=== PATIENT | female | born 1945 | race Hispanic/Latino ===

== ENCOUNTER 2016-08-09 00:12 | Emergency (ER) | payer MEDICARE, BC ==
[2016-08-09 00:20] VITALS: BP 147/72; PULSE 70; RESP 20; TEMP 97.5; O2SAT 100
[2016-08-09] MEDS ORDERED: Bacitracin 500 Units/gm Oint Foilpak UD ONE (00:57)
--- NOTE | 2016-08-09 00:59 | C.PDOC ---
History Of Present Illness 71 year old female presents to the ED with complaints of scratches to both forearms. Patient states her cat escaped and while trying to get the cat back, it scratched her. Cat is being treated for bartonella and upon calling the vet was advised to go to the ER to be treated. Patient denies any other physical complaints at this time. Time Seen by Provider: 08/09/16 00:28 Chief Complaint (Nursing): Abnormal Skin Integrity History Per: Patient History/Exam Limitations: no limitations Onset/Duration Of Symptoms: Hrs Current Symptoms Are (Timing): Still Present Location Of Injury: Right: Forearm, Left: Forearm, Anterior: Forearm Quality Of Symptoms: denies: Itching, Swollen, Draining Recent travel outside of the [place]: No - Animal Bite Description Of The Attack: Approached Animal (to recapture escaped cat ) Description Of The Animal: Family Pet Reports Animal Appears: Other (Being treated for Bartonella) Animal Control Notified: No Past Medical History Reviewed: Historical Data, Nursing Documentation, Vital Signs Vital Signs: Last Vital Signs Temp 97.5 F L 08/09/16 00:15 Pulse 70 08/09/16 00:15 Resp 20 08/09/16 01:15 BP 147/72 08/09/16 00:15 Pulse Ox 100 08/09/16 05:56 Surgical History: Cholecystectomy - [facility] Procedures COLONOSCOPY (05/19/02) Family History: States: No Known Family Hx - Social History Hx Alcohol Use: No Hx Substance Use: No - Immunization History Hx Tetanus Toxoid Vaccination: No Hx Influenza Vaccination: No Hx Pneumococcal Vaccination: No Review Of Systems Constitutional: Negative for: Fever, Chills, Sweats Cardiovascular: Negative for: Chest Pain, Palpitations Respiratory: Negative for: Cough, Shortness of Breath Gastrointestinal: Negative for: Nausea, Vomiting, Abdominal Pain, Diarrhea Musculoskeletal: Positive for: Arm Pain (forearm scratches ) Physical Exam - Physical Exam Appears: Non-toxic, No Acute Distress Skin: Warm, Dry Head: Atraumatic Oral Mucosa: Moist Neck: Supple Chest: Symmetrical, No Deformity Cardiovascular: Rhythm Regular Extremity: Normal ROM, No Tenderness, No Deformity, No Swelling, Other ( Superficial excoriations to both forearms and hands on mostly dorsal aspect. ) Neurological/Psych: Oriented x3 ED Course And Treatment O2 Sat by Pulse Oximetry: 100 (room air ) Progress Note: Wound was cleaned and bacitracin was applied and dressed by RN. Patient was given motrin and doxycycline ( Vet recommended doxy or zithromax). Wound care instructions given and understood by pt Disposition Counseled Patient/Family Regarding: Diagnosis, Need For Followup, Rx Given - Disposition Disposition: HOME/ ROUTINE Disposition Time: 00:56 Condition: STABLE Additional Instructions: PLEASE FOLLOW UP WITH PMD TAKE MEDS DIRECTED TYLENOL OR ADVIL FOR PAIN APPLY BACITRACIN OR NEOSPORIN OINTMENT TO AFFECTED AREAS RETURN TO ER IF MODERATE SWELLING, REDNESS OR WORSE Prescriptions: Doxycycline Hyclate 100 mg PO BID #14 capsule Instructions: Abrasion (ED) - Clinical Impression Clinical Impression: Cat scratch of multiple sites - Scribe Statement The provider has reviewed the documentation as recorded by the Scribe Renetta Woodall All medical record entries made by the Scribe were at my direction and personally dictated by me. I have reviewed the chart and agree that the record accurately reflects my personal performance of the history, physical exam, medical decision making, and the department course for this patient. I have also personally directed, reviewed, and agree with the discharge instructions and disposition.
== END 2016-08-09 01:15 | disposition home or self-care (01) ==
LOC: C.ER 00:12
DX: S50.812A Abrasion of left forearm, initial encounter (principal); S50.811A Abrasion of right forearm, initial encounter; W55.03XA Scratched by cat, initial encounter